=== PATIENT | female | born 1970 | race Caucasian/White ===

== ENCOUNTER 2018-11-13 06:27 | Day surgery (SDC) | payer OTHER, SELFPAY ==
[2018-11-13] VITALS (7 sets, daily range): BP systolic 95–113; BP diastolic 66–77; PULSE 54–76; RESP 13–16; TEMP 36.2–36.9; O2SAT 96–99
--- NOTE | 2018-11-13 | PATH_ITS ---
[facility] Accession Number: [id number] . 01 Material submitted: . PART A: HEPATIC FLEXTURE POLYP PART B: SIGMOID POLYP AT 20CM X2 PART C: RECTAL POLYP AT 8CM . 02 Diagnosis: A. Hepatic Flexure, Polyp, Biopsy: Tubular adenoma. . B. Sigmoid Colon, Polyp at 20 cm x2, Biopsies: Tubular adenomas. . C. Rectum, Polpy at 8 cm, Biopsy: Tubular adenoma. MRV/11/17/2018 . 02 Electronically signed: . Jocelyne Alfaro MD, Pathologist NPI- [id number] . 01 Gross description: . Part A: HEPATIC FLEXTURE POLYP: Received in formalin are multiple fragment(s) of timmons, soft tissue measuring 0.6 x 0.3 x 0.2 cm in aggregate submitted entirely in 1 cassette(s) Part B: SIGMOID POLYP AT 20CM X2: Received in formalin are multiple fragment(s) of timmons, soft tissue measuring 0.9 x 0.3 x 0.3 cm in aggregate submitted entirely in 1 cassette(s) Part C: RECTAL POLYP AT 8CM: Received in formalin is 1 fragment(s) of timmons, soft tissue measuring 0.4 x 0.4 x 0.3 cm submitted entirely in 1 cassette(s) /CKI /CKI . 02 Pathologist provided ICD-10: D12.3, D12.5, D12.8 . 02 CPT . 077099, 341435, 063434 Performed at: [facility] [address], [place], [place] [id number] MD Cl Rivas MD Phone: [phone] [facility]formed at: [facility] [place] [address] [place] [id number] MD Jocelyne Alfaro MD Phone: [phone]
--- NOTE | 2018-11-13 08:05 | PM.HP.1 ---
History of Present Illness Date Patient Seen: 11/13/18 Time Patient Seen: 08:05 Chief complaint: [id number] Colonoscopy Narrative: 48-year-old female who presents for colorectal screening. On further history today she has had no recent gastrointestinal symptoms. Denies any nausea, vomiting, abdominal pain, unanticipated weight loss, anorexia, change in bowel habits, diarrhea, constipation, melena, hematochezia, or bright red blood per rectum. Her family history is unknown to her as she was adopted. Patient History Medical History Hypothyroidism (Acute) No significant past surgical history (Acute) Social History household members: spouse Family & Social History Family History Unknown No problems noted. Social History: household members spouse Meds Home Medications Medication Instructions Recorded Confirmed Type CA PANTOTHENATE/FOLIC ACID/VIT 1 tab PO QDAY #0 06/11/12 11/13/18 History (MULTIVITAMIN) LEVOTHYROXINE SODIUM (SYNTHROID) 0.05 mg PO QDAY #0 06/11/12 11/13/18 History VITAMIN D (Vitamin D3) 1,000 unit PO QDAY #0 06/11/12 11/13/18 History Allergies Allergy/AdvReac Type Severity Reaction Status Date / Time INGREDIENT: NO KNOWN - NO Allergy Unknown Uncoded 01/21/18 13:08 KNOWN DRUG ALLERGY Review of Systems Review of Systems All systems reviewed & are unremarkable except as noted in HPI and below Exam Vital Signs (past 8 hours): - 11/13/18 06:41 Temperature 98.1 F Pulse Rate 66 Respiratory Rate 15 Blood Pressure 113/68 Pulse Oximetry 99 Oxygen Delivery Method Room Air Narrative Exam Narrative: Well-nourished well-developed female in no acute distress. Alert oriented x3. Her is at the bedside for my entire visit. Sclera nonicteric Chest clear to auscultation bilaterally. No crackles or wheezes. Regular rate and rhythm. No murmurs. Abdomen soft, nondistended, nontender Extremities show no clubbing or cyanosis Objective Labs Labs: No recent laboratory or radiographic studies available for review Assessment & Plan Plan: Assessment/Plan Narrative: 48-year-old female requiring colorectal screening by age criteria. Her family history is unknown as well. I recommended colonoscopy. Technical details of the procedure were discussed. Risks, benefits, alternatives were explained. Risks including but not limited to sedation, aspiration, bleeding, pain, missed lesion, incomplete examination, need for further radiographic studies, colonic perforation, need for major abdominal surgery, and all attendant risks of major surgery were discussed at length. All questions were answered to her satisfaction, and she voiced understanding. Consent was placed on the chart. We will proceed as above.
--- NOTE | 2018-11-13 08:08 | PM.PREOP ---
Pre-operative Note Interval Note History & Physical reviewed/Exam performed by Physician: Yes Changes to H&P: No H&P completed within 30 days and has changed as indicated here:: Patient seen and examined in the preoperative area. History physical examination documented and placed on the chart. Obviously there have been no changes in the last 15 min. We will proceed with colonoscopy today as planned. ASA Class (for procedural sedation): I
[2018-11-13] MEDS: MIDAZOLAM 5 MG/5 ML VIAL IV (08:29)
[2018-11-13] MEDS: fentaNYL 250 MCG/5 ML INJ IV (08:30)
[2018-11-13] MEDS: GLUCAGON,HUMAN RECOMBINANT 1 MG/ML VIAL IV (08:35)
--- NOTE | 2018-11-13 08:41 | PM.OP.ENDO ---
Operative Date/Time/Diagnoses Date of procedure: 11/13/18 Time of procedure: 08:41 Pre-op diagnosis: Colorectal screening Post-op diagnosis: other (Multiple colon polyps) Procedure & Clinicians Study performed: 1. Sedation per surgeon 2. Colonoscopy with multiple cold forceps polypectomies Same procedure as scheduled: Yes Indications: 48-year-old female who presents for colorectal screening by age criteria. Colonoscopy is recommended. Surgeon: Rhett Chiu Procedure Notes SCOAP/Timeout: Yes Procedure in detail: After obtaining informed consent, the patient was brought to the GI suite and placed in the left lateral decubitus position on the examination table. After placement of appropriate monitors, the patient was given incremental doses of Versed and Fentanyl until an appropriate level of sedation was achieved. A time out was held per SCOAP protocol. A digital rectal examination was performed and did not reveal any masses or obstructing lesions. The colonoscope was gently passed into the patient's anus and the entire colon navigated to the level of the cecum with minimal difficulty. Terminal ileum was intubated and noted to be normal. Once in the cecum, the scope was withdrawn being sure to go before and beyond all mucosal folds and prominences and get an excellent examination. The findings are noted above. At the level of the rectal vault, the scope was retroflexed and the internal anal canal was examined. The scope was straightened and air aspirated from the colon. The instrument was removed from the patient's body and the procedure was concluded. The patient was allowed to awaken from sedation without difficulty and taken to the post-anesthesia care unit in good condition. Scope withdrawal time: 18:50 min Sedation minutes: 30 Findings: polyp Specimen(s): other (1. Hepatic flexure polyp at 65 cm 2. Sigmoid colon polyps x2 at 25 cm 3. Rectal polyp at 8 cm) Complications: none Recommendations: Colonscopy in 5 years, High fiber diet and Will call with biopsy results Plan for aftercare: 1. Discharge home Follow up: as needed Disposition: PACU
[2018-11-13] MEDS: SODIUM CHLORIDE 0.9% 1,000 ML 200 ML IV (08:51)
[2018-11-13] MEDS: ONDANSETRON 4 MG ODT SL (09:55)
--- NOTE | 2018-11-13 10:29 | SUR.PHASEII ---
3428 PT SAT UP TO GET DRESSED AND BECAME NAUSEATED, DR JOE NOTIFIED, PT MEDICATED, COMFORT MEASURES PROVIDED AND PT RESTED FOR A BIT MORE. STATED SHE WAS FEELING BETTER AND WANTED TO GO HOME , VSS, PT D/C HOME WITH .
== END 2018-11-13 10:33 | disposition home or self-care (01) ==
PROVIDERS: Surgery; PCP Physician Assistant; Visit Provider Specialist
PROC: 0DJD8ZZ Inspection of Lower Intestinal Tract, Via Natural or Artificial Opening Endoscopic (ICD-10-PCS; CPT 45378; principal; 2018-11-13 07:45)
DX: Z12.11 Encounter for screening for malignant neoplasm of colon (principal); E03.9 Hypothyroidism, unspecified; D12.3 Benign neoplasm of transverse colon; D12.5 Benign neoplasm of sigmoid colon; D12.8 Benign neoplasm of rectum
CPT/HCPCS: 45380; 99152; 99153; J1610; J2250; J3010

== ENCOUNTER → 2021-01-12 11:15 | Outpatient (CLI) | payer OTHER, SELFPAY ==
--- NOTE | 2021-01-12 11:16 | DI.MG.S_ITS ---
BILATERAL DIGITAL SCREENING MAMMOGRAM 3D/2D WITH CAD: 01/12/2021 CLINICAL: Routine screening. Comparison is made to exams dated: 07/05/2016 mammogram, 08/21/2018 mammogram, and 10/22/2019 mammogram - [facility]. The tissue of both breasts is heterogeneously dense. This may lower the sensitivity of mammography. Current study was also evaluated with a Computer Aided Detection (CAD) system. No significant masses, calcifications, or other findings are seen in either breast. There has been no significant interval change. IMPRESSION: NEGATIVE There is no mammographic evidence of malignancy. A 1 year screening mammogram is recommended. This exam was interpreted at Station ID: [id number]. NOTE: For mammograms, a report in lay terms will be sent to the patient. Approximately 15% of breast malignancies will not be visualized mammographically. In the management of a palpable breast mass, a negative mammogram must not discourage biopsy of a clinically suspicious lesion. Electronically Signed By: Cl vazquez/lashanda:01/12/2021 14:17:56 letter sent: Normal Exam ACR BI-RADS Category 1: Negative 3341F
== END ==
PROVIDERS: PCP Physician Assistant; Referring Provider Physician Assistant; Visit Provider Physician Assistant
DX: Z12.31 Encounter for screening mammogram for malignant neoplasm of breast (principal)
CPT/HCPCS: 77063; 77067

== ENCOUNTER → 2022-01-25 11:40 | Outpatient (CLI) | payer OTHER, SELFPAY ==
--- NOTE | 2022-01-25 11:42 | DI.MG.S_ITS ---
BILATERAL DIGITAL SCREENING MAMMOGRAM 3D/2D WITH CAD: 01/25/2022 CLINICAL: Routine screening. Comparison is made to exams dated: 01/12/2021 mammogram - [facility], 10/22/2019 mammogram, and 08/21/2018 mammogram - [facility]. The tissue of both breasts is heterogeneously dense. This may lower the sensitivity of mammography. Current study was also evaluated with a Computer Aided Detection (CAD) system. There is a biopsy clip in the right breast. No significant masses, calcifications, or other findings are seen in either breast. There has been no significant interval change. IMPRESSION: NEGATIVE There is no mammographic evidence of malignancy. A 1 year screening mammogram is recommended. This exam was interpreted at Station ID: [id number]. NOTE: For mammograms, a report in lay terms will be sent to the patient. Approximately 15% of breast malignancies will not be visualized mammographically. In the management of a palpable breast mass, a negative mammogram must not discourage biopsy of a clinically suspicious lesion. Electronically Signed By: Lui Myers acr/penrad:01/25/2022 12:39:14 letter sent: Normal Exam ACR BI-RADS Category 1: Negative 3341F
== END ==
PROVIDERS: PCP Student in an Organized Health Care Education/Training Program; Referring Provider Physician Assistant; Visit Provider Physician Assistant
DX: Z12.31 Encounter for screening mammogram for malignant neoplasm of breast (principal)
CPT/HCPCS: 77063; 77067

== ENCOUNTER → 2023-01-31 12:55 | Outpatient (CLI) | payer OTHER, SELFPAY ==
--- NOTE | 2023-01-31 | DI.MG.S_ITS ---
BILATERAL DIGITAL SCREENING MAMMOGRAM 3D/2D WITH CAD: 01/31/2023 CLINICAL: Routine screening. Comparison is made to exams dated: 01/25/2022 mammogram, 01/12/2021 mammogram - [facility], and 10/22/2019 mammogram - [facility]. Both breasts are heterogeneously dense, which may obscure small masses (category c / 51-75% glandular tissue). Current study was also evaluated with a Computer Aided Detection (CAD) system. There is a biopsy clip in the right breast. No significant masses, calcifications, or other findings are seen in either breast. There has been no significant interval change. IMPRESSION: NEGATIVE There is no mammographic evidence of malignancy. A 1 year screening mammogram is recommended. Based on the Tyrer Cuzick model (a risk assessment model) the patient's lifetime risk is 10.8% and her 10 year risk is 3.1%. According to the ACR, ACS, and NCCN guidelines, an annual breast MRI exam along with mammogram is recommended if the patient's lifetime risk is 20% or greater. This exam was interpreted at Station ID: [id number]. NOTE: For mammograms, a report in lay terms will be sent to the patient. Approximately 15% of breast malignancies will not be visualized mammographically. In the management of a palpable breast mass, a negative mammogram must not discourage biopsy of a clinically suspicious lesion. Electronically Signed By: Jo love/lashanda:01/31/2023 13:37:30 letter sent: Normal Exam ACR BI-RADS Category 1: Negative 3341F
== END ==
PROVIDERS: PCP Student in an Organized Health Care Education/Training Program; Referring Provider Student in an Organized Health Care Education/Training Program; Visit Provider Student in an Organized Health Care Education/Training Program
DX: Z12.31 Encounter for screening mammogram for malignant neoplasm of breast (principal)
CPT/HCPCS: 77063; 77067

== ENCOUNTER 2023-10-26 16:24 | Emergency (ER) | payer OTHER, SELFPAY ==
[2023-10-26 16:35] VITALS: BP 119/55; PULSE 66; RESP 20; TEMP 37.1; O2SAT 100; BMI 21.1
--- NOTE | 2023-10-26 17:38 | ED.LOWEXIN ---
HPI - Extremity Injury (Lower) <Stella Acosta PA-C - Last Filed: 10/26/23 19:41> General Chief Complaint: Extremity Injury, Lower Stated Complaint: GLF, knee pain Time Seen by Provider: 10/26/23 16:40 Source: patient Mode of arrival: Ambulatory History of Present Illness HPI Narrative: 53-year-old female here today for an injury to her right leg. States about 1 hour prior to arrival she slipped on ice and her legs went separate directions kind of in the splits, and then she fell onto her left hip. States she has felt immediate pain in her right posterior leg and she is unable to really stand on the affected leg or walk. She denies any hip, back, or knee pain. No injury to the head or loss of consciousness. Pain is worsened when she tries to extend her leg or her posterior right leg muscles. Related Data Home Medications Medication Instructions Recorded Confirmed CA PANTOTHENATE/FOLIC ACID/VIT 1 tab PO QDAY ##0 06/11/12 11/13/18 (MULTIVITAMIN) LEVOTHYROXINE SODIUM (SYNTHROID) 0.05 mg PO QDAY ##0 06/11/12 11/13/18 VITAMIN D (Vitamin D3) 1,000 unit PO QDAY ##0 06/11/12 11/13/18 Previous Rx's Medication Instructions Recorded cyclobenzaprine 5 mg tablet 5 mg PO TID PRN muscle spasm #20 10/26/23 tabs Allergies Allergy/AdvReac Type Severity Reaction Status Date / Time No Known Drug Allergies Allergy Verified 10/26/23 16:35 Review of Systems <Stella Acosta PA-C - Last Filed: 10/26/23 19:41> Review of Systems ROS Unobtainable: All systems reviewed & are unremarkable except as noted in HPI and below Patient History <Stella Acosta PA-C - Last Filed: 10/26/23 19:41> Medical History (Updated 10/26/23 @ 18:07 by Stella Acosta PA-C) Hypothyroidism Surgical History No significant past surgical history Family History Unknown No problems noted. Social History household members: spouse Smoking Status: Never smoker Smoking Status: Never smoker Substance Use Type: does not use Exam <Stella Acotsa PA-C - Last Filed: 10/26/23 19:41> Narrative Exam Narrative: GENERAL: [53] year old patient appears stated age. Well-developed patient, in no acute distress. HEAD: Atraumatic. Normocephalic. EYES: Pupils equal round and reactive. Extraocular motions intact. No scleral icterus. No injection or drainage. ENT: Nose without bleeding, purulent drainage. Airway patent. NECK: Trachea midline. Non tender RESPIRATORY: Respiratory rate and effort normal EXTREMITIES: No edema or joint tenderness. Normal examination of the right hip and knee. No ligamentous laxity of the knee. Unable to extend knee due to pain in the right hamstring. TTP over the right hamstring. Patient did not want to undergo effort of removing pants so was unable to assess for ecchymosis or swelling. Normal neurovascular exam BACK: Nontender without deformity or crepitus. No flank tenderness. NEURO: AOx3. SKIN: No rash or erythema of visible areas Initial Vital Signs Initial Vital Signs: Vital Signs Temperature 98.7 F 10/26/23 16:35 Pulse Rate 66 10/26/23 16:35 Respiratory Rate 20 10/26/23 16:35 Blood Pressure 119/55 L 10/26/23 16:35 Pulse Oximetry 100 10/26/23 16:35 Oxygen Delivery Method Room Air 10/26/23 16:35 <Will Anthony DO - Last Filed: 10/28/23 18:09> Initial Vital Signs Initial Vital Signs: Vital Signs Temperature 98.7 F 10/26/23 16:35 Pulse Rate 66 10/26/23 16:35 Respiratory Rate 20 10/26/23 16:35 Blood Pressure 119/55 L 10/26/23 16:35 Pulse Oximetry 100 10/26/23 16:35 Oxygen Delivery Method Room Air 10/26/23 16:35 Course <Stella Acosta PA-C - Last Filed: 10/26/23 19:41> Orders Ordered: Discontinued Medications Acetaminophen (Acetaminophen 325 Mg Tablet) 975 mg PO NOW ONE Stop: 10/26/23 18:04 Last Admin: 10/26/23 18:08 Dose: 975 mg Documented By: MANJU Cyclobenzaprine HCl (Cyclobenzaprine 10 Mg Tablet) 5 mg PO NOW ONE Stop: 10/26/23 18:04 Last Admin: 10/26/23 18:08 Dose: 5 mg Documented By: MANJU Vital Signs Vital signs: Vital Signs - 8 hr 10/26/23 16:35 10/26/23 18:27 Temperature 98.7 F 98.7 F Pulse Rate 66 62 Respiratory Rate 20 17 Blood Pressure 119/55 L 117/59 L Pulse Oximetry 100 97 Oxygen Delivery Method Room Air Room Air <Will Anthony DO - Last Filed: 10/28/23 18:09> Orders Ordered: Discontinued Medications Acetaminophen (Acetaminophen 325 Mg Tablet) 975 mg PO NOW ONE Stop: 10/26/23 18:04 Last Admin: 10/26/23 18:08 Dose: 975 mg Documented By: MANJU Cyclobenzaprine HCl (Cyclobenzaprine 10 Mg Tablet) 5 mg PO NOW ONE Stop: 10/26/23 18:04 Last Admin: 10/26/23 18:08 Dose: 5 mg Documented By: MANJU Vital Signs Vital signs: Vital Signs - 8 hr 10/26/23 16:35 10/26/23 18:27 Temperature 98.7 F 98.7 F Pulse Rate 66 62 Respiratory Rate 20 17 Blood Pressure 119/55 L 117/59 L Pulse Oximetry 100 97 Oxygen Delivery Method Room Air Room Air MDM - Extremity Injury (Lower) <Stella Acosta PA-C - Last Filed: 10/26/23 19:41> MDM Narrative Medical decision making narrative: Patient's history and presentation and examination are consistent with a right hamstring injury. She does have the preserved ability to activate the hamstring musculature which indicates there was not a full tear of the muscle. Her mechanism of injury does not put her at risk for fracture and she has no signs or symptoms of fracture. Her symptoms are completely localized to the right hamstring musculature which I believe is due to a sprain/strain of the area. We discussed rest, ice, immobilization, and the use of ibuprofen for inflammation. Recommend patient rest and use ibuprofen and muscle relaxants for the next 3-4 days. If she is failing to improve or continues to have worsening pain I recommend she follows up with her PCP to discuss further evaluation such as with an MRI. However I advised patient that even if she did tear her hamstring muscle, that in the large majority of cases this just requires rest and time and would not be something that requires surgical intervention or other specific interventions. ER precautions discussed. Discharge Plan Departure Patient Disposition: Home Clinical Impression: Hamstring injury Qualifiers: Encounter type: initial encounter Laterality: right Qualified Code(s): S76.301A - Unspecified injury of muscle, fascia and tendon of the posterior muscle group at thigh level, right thigh, initial encounter Instructions: DI for Hamstring Strain Activity Restrictions/Additional Instructions: You were seen today for a right leg injury. Your symptoms and examination are consistent with a hamstring strain, possibly a tear of the hamstring muscle. At this time no imaging is indicated here in the emergency department. We recommend ice, rest, and alternating ibuprofen and Tylenol as needed for pain. Please use the crutches given to you today to ambulate as needed. If you continue to have worsening pain or pain that does not improve over the next 3-5 days, please follow up with her PCP as you may need further imaging such as an MRI at that time. Today he did not have any concerning signs for fracture or other injuries that would require x-ray or immediate attention here in the ER. Prescriptions: New cyclobenzaprine 5 mg tablet 5 mg PO TID PRN (Reason: muscle spasm) Qty: 20 0RF No Action LEVOTHYROXINE SODIUM (SYNTHROID) 0.05 mg PO QDAY Qty: 0 CA PANTOTHENATE/FOLIC ACID/VIT (MULTIVITAMIN) 1 tab PO QDAY Qty: 0 VITAMIN D (Vitamin D3) 1,000 unit PO QDAY Qty: 0 Referrals: Brianna Garcia PA-C [Primary Care Provider] - Stand Alone Forms: Patient Portal/API ED Sign-out <Will Anthony, - Last Filed: 10/28/23 18:09> [facility] Dr Anthony Co-Sign Statement: I was available for consultation during this patient's emergency department visit. This chart is signed by myself for administrative purposes only. I did not have direct contact with this patient during this visit. They were seen independently by the APC.
[2023-10-26] MEDS: CYCLOBENZAPRINE 10 MG TABLET 5 MG PO (18:08)
[2023-10-26] MEDS: ACETAMINOPHEN 325 MG TABLET 975 MG PO (18:08)
[2023-10-26 18:27] VITALS: BP 117/59; PULSE 62; RESP 17; TEMP 37.1; O2SAT 97
== END 2023-10-26 18:50 | disposition home or self-care (01) ==
PROVIDERS: Emergency Provider Physician Assistant; PCP Student in an Organized Health Care Education/Training Program
DX: S76.301A Unspecified injury of muscle, fascia and tendon of the posterior muscle group at thigh level, right thigh, initial encounter (principal); W00.0XXA Fall on same level due to ice and snow, initial encounter
CPT/HCPCS: 99283

== ENCOUNTER → 2024-02-27 13:57 | Outpatient (CLI) | payer OTHER, SELFPAY ==
--- NOTE | 2024-02-27 13:59 | DI.MG.S_ITS ---
BILATERAL DIGITAL SCREENING MAMMOGRAM 3D/2D WITH CAD: 02/27/2024 CLINICAL: Routine screening. Comparison is made to exams dated: 01/31/2023 mammogram, 01/25/2022 mammogram, and 01/12/2021 mammogram - [facility]. Both breasts are heterogeneously dense, which may obscure small masses (category c / 51-75% glandular tissue). Current study was also evaluated with a Computer Aided Detection (CAD) system. There is a biopsy clip in the right breast. No significant masses, calcifications, or other findings are seen in either breast. There has been no significant interval change. IMPRESSION: BENIGN There is no mammographic evidence of malignancy. A 1 year screening mammogram is recommended. Based on the Tyrer Cuzick model (a risk assessment model) the patient's lifetime risk is 11.1% and her 10 year risk is 3.6%. According to the ACR, ACS, and NCCN guidelines, an annual breast MRI exam along with mammogram is recommended if the patient's lifetime risk is 20% or greater. This exam was interpreted at Station ID: [id number]. NOTE: For mammograms, a report in lay terms will be sent to the patient. Approximately 15% of breast malignancies will not be visualized mammographically. In the management of a palpable breast mass, a negative mammogram must not discourage biopsy of a clinically suspicious lesion. Electronically Signed By: Jj badillo/lashanda:02/27/2024 14:59:45 letter sent: Normal Exam ACR BI-RADS Category 2: Benign Finding(s) 3342F
== END ==
PROVIDERS: PCP Registered Nurse; Referring Provider Registered Nurse; Visit Provider Registered Nurse
DX: Z12.31 Encounter for screening mammogram for malignant neoplasm of breast (principal); R92.333 Mammographic heterogeneous density, bilateral breasts
CPT/HCPCS: 77063; 77067

== ENCOUNTER 2024-09-23 09:52 | Day surgery (SDC) | payer OTHER, SELFPAY ==
[2024-09-23 10:41] VITALS: BP 109/70; PULSE 49; RESP 14; TEMP 36.1; O2SAT 99
--- NOTE | 2024-09-23 11:11 | P.HP_ITS ---
History of Present Illness History of Present Illness Date Patient Seen: 09/23/24 Time Patient Seen: 11:11 Chief complaint: Colonoscopy Narrative: Michelle is a 54-year-old woman here for a colonoscopy. Her last one was about [address] Chiu and 3 adenomatous polyps were removed. [facility] Medical History (Updated 09/23/24 @ 11:12 by Ismael Moore MD) Hypothyroidism Surgical History No significant past surgical history Family History Unknown No problems noted. Social History household members: spouse Smoking Status: Never smoker alcohol intake: never Meds Home Medications and Allergies Home Medications Medication Instructions Recorded Confirmed Type CA PANTOTHENATE/FOLIC ACID/VIT 1 tab PO QDAY ##0 06/11/12 11/13/18 History (MULTIVITAMIN) LEVOTHYROXINE SODIUM (SYNTHROID) 0.05 mg PO QDAY ##0 06/11/12 09/23/24 History VITAMIN D (Vitamin D3) 1,000 unit PO QDAY ##0 06/11/12 11/13/18 History Allergies Allergy/AdvReac Type Severity Reaction Status Date / Time No Known Drug Allergies Allergy Verified 09/23/24 10:34 Exam Vital Signs (past 8 hours): - 09/23/24 10:41 Temperature 97 F L Pulse Rate 49 L Respiratory Rate 14 Blood Pressure 109/70 Pulse Oximetry 99 Oxygen Delivery Method Room Air Oxygen Delivery Method Room Air Const General: healthy appearing Assessment & Plan Assessment and plan (1) History of colon polyps: Status: Acute Plan Colonoscopy Time-Based Coding :: [TOTAL MINUTES] spent with patient and on the chart (including review of chart, obtaining history, exam, reviewing outside data, placing orders, documenting exam and treatment plan, and counseling patient) on [DATE].
--- NOTE | 2024-09-23 12:20 | PM.OP.COLON ---
Operative Date/Time/Diagnoses Date of procedure: 09/23/24 Time of procedure: 12:21 Pre-op diagnosis: Colon cancer screening Post-op diagnosis: same Procedure & Clinicians Study performed: Colonoscopy Same procedure as scheduled: Yes Surgeon: Ismael Moore Procedure Notes Procedure in detail: Surgeon: Ismael Moore MD Anesthesia: Teodoro Fraser DO Procedure: The patient was brought to the endoscopy suite, placed in left lateral decubitus position. The patient was connected to monitoring devices. A time-out was performed. Sedation was administered. Once the patient was adequately sedated, a digital rectal exam was performed and was normal. The scope was then inserted and advanced to the cecum where the appendiceal orifice was identified and photographed. The scope was then slowly withdrawn over greater than 6 minutes. The mucosa was thoroughly inspected. No polyps or other abnormalities were found. The scope was retroflexed in the rectum. No abnormalities were seen. The scope was straightened and removed. The patient was awakened and brought to recovery. Scope withdrawal time: 7 minutes Sedation time: 22 minutes EBL: 0 Findings: Normal colon Post-procedure Recommendations: Colonoscopy in 10 years Disposition: PACU
[2024-09-23 12:22] VITALS: BP 97/58; PULSE 71; RESP 19; TEMP 36.1; O2SAT 93
[2024-09-23 12:27] VITALS: BP 100/62; PULSE 67; RESP 19; O2SAT 94
[2024-09-23 12:32] VITALS: BP 104/64; PULSE 66; RESP 18; O2SAT 96
[2024-09-23 12:37] VITALS: BP 101/63; PULSE 69; RESP 10; O2SAT 96
[2024-09-23 12:47] VITALS: BP 100/66; PULSE 65; RESP 12; TEMP 36.7; O2SAT 98
== END 2024-09-23 12:54 | disposition home or self-care (01) ==
PROVIDERS: PCP Registered Nurse; Referring Provider Surgery; Visit Provider Surgery
PROC: 0DJD8ZZ Inspection of Lower Intestinal Tract, Via Natural or Artificial Opening Endoscopic (ICD-10-PCS; CPT 45378; principal; 2024-09-23 11:00)
DX: Z12.11 Encounter for screening for malignant neoplasm of colon (principal)
CPT/HCPCS: 45378; J2704

== ENCOUNTER → 2025-03-18 12:56 | Outpatient (CLI) | payer OTHER, SELFPAY ==
--- NOTE | 2025-03-18 12:57 | DI.MG.S_ITS ---
MM screening mammo BI: 03/18/2025. BI-RADS: 1 CLINICAL: 55-year old female for bilateral screening mammogram. Tyrer-Cuzick lifetime risk of 6.8%. No personal or first-degree family history of breast cancer. The patient had a prior right breast biopsy. PRIOR EXAMS 02/27/2024, 01/31/2023, 01/25/2022, 01/12/2021. MAMMOGRAPHY TECHNIQUE: 2D and 3D (tomosynthesis) digital mammographic views obtained, with additional images as needed for full coverage. Current study was also evaluated with a Computer Aided Detection (CAD) system. DENSITY C. The breasts are heterogeneously dense, which may obscure small masses. MAMMOGRAPHY FINDINGS Bilateral: No suspicious mass, asymmetry, microcalcification, or other abnormality seen. IMPRESSION: * No evidence of malignancy. RECOMMENDATIONS Bilateral * Annual screening mammography. OVERALL ASSESSMENT CATEGORY BI-RADS-1: Negative. [employer] recommends annual screening mammography beginning at age 40 for women with average risk of breast cancer. ELECTRONICALLY SIGNED: Heath Emanuel M.D. on 03/18/2025 at 10:57:48 PM PT Interpreting Station ID: [id number]
== END ==
LOC: MAMMO 12:56
PROVIDERS: PCP Family Medicine; Referring Provider Family Medicine; Visit Provider Family Medicine
DX: Z12.31 Encounter for screening mammogram for malignant neoplasm of breast (principal); R92.333 Mammographic heterogeneous density, bilateral breasts
CPT/HCPCS: 77063; 77067